=== PATIENT | female | born 1970 | race Two or more races ===

== ENCOUNTER → 2024-03-10 07:05 | Outpatient (CLI) | payer OTHER ==
[~2024-03-10 07:05] MED LIST: AMLODIPINE-OLM1 EAC2; GLIPIZIDE10 MG; LEVOTHYROXINE200 MC1; LIPITOR20 MG; PIOGLITAZ-GLIM1 EAC1; SINGULAIR10 MG
== END | disposition home or self-care (01) ==
LOC: NUCLEAR 07:00
PROVIDERS: ATTEND Internal Medicine Gastroenterology
DX: K31.84 Gastroparesis (principal)